=== PATIENT | male | born 1985 | race Caucasian/White ===

== ENCOUNTER → 2020-08-12 | Outpatient (CLI) | payer OTHER ==
--- NOTE | 2020-08-12 16:04 | RAD ---
EXAM: XR LUMBAR SPINE 2-3V, XR KNEE 1-2 VIEWS 08/12/2020 8:53 AM CLINICAL INDICATION: Back pain, bilateral knee pain COMPARISON: None TECHNIQUE: 2 views of the lumbar spine. 2 views of the right and left knee FINDINGS: Lumbar spine: There is transitional anatomy with partial lumbarization of the sacrum. No acute fractu re or listhesis. There is slight leftward curvature of the lumbar spine. Disc spaces are maintained. Facet joints are normal. Right knee: No acute fracture or malalignment. Joint spaces are maintained. Possible small joint effu fifi. Left knee: No acute fracture. Alignment is normal. Joint spaces are maintained. No joint effusion. IMPRESSION: 1. No acute abnormality of the lumbar spine. 2. No acute abnormality of the right or left knee. Electronically signed by: Anisa Sky MD (08/12/2020 4:02 PM) [id number]
== END ==
LOC: RAD 08:23
PROVIDERS: ATTEND Surgery
DX: M43.8X6 Other specified deforming dorsopathies, lumbar region (principal); M25.561 Pain in right knee; M25.562 Pain in left knee
CPT/HCPCS: 72100; 73560